=== PATIENT | male | born 1970 | race Caucasian/White ===

== ENCOUNTER 2016-05-25 17:00 | Emergency (ER) | payer SELFPAY ==
[~2016-05-25] VITALS: Ht 152.4 cm; Wt 74.1 kg
[~2016-05-25 17:00] MED LIST: ASPI-650 PO
[2016-05-25 17:04] VITALS: BP 110/72
[2016-05-25 18:36] LABS: BLOOD UREA NITROGEN 8 mg/dL (7-18)
== END 2016-05-25 19:04 | disposition home or self-care (01) ==
LOC: ED 18:40
DX: S16.1XXA Strain of muscle, fascia and tendon at neck level, initial encounter (principal); M54.12 Radiculopathy, cervical region; G62.9 Polyneuropathy, unspecified; M79.602 Pain in left arm; R20.0 Anesthesia of skin; F17.200 Nicotine dependence, unspecified, uncomplicated; F12.10 Cannabis abuse, uncomplicated; Z86.73 Personal history of transient ischemic attack (TIA), and cerebral infarction without residual deficits; X58.XXXA Exposure to other specified factors, initial encounter; Y93.89 Activity, other specified; Y99.8 Other external cause status; Y92.89 Other specified places as the place of occurrence of the external cause
CPT/HCPCS: 36415; 72050; 80048; 99285